=== PATIENT | female | born 1950 | race Caucasian/White ===

== ENCOUNTER 2017-03-17 10:49 | Outpatient (CLI) | payer OTHER ==
--- NOTE | 2017-03-18 08:20 | Mammography Report ---
DIGITAL BILATERAL SCREENING MAMMOGRAM: 03/17/2017 CLINICAL HISTORY: A 66-year-old female in for routine screening mammogram. Patient's mother had liliana ast cancer at age 50. Her aunt had breast cancer at age 82. She has a cousin with breast cancer at age 35. Patient has had prior breast surgery. She had a benign biopsy of the left breast. COMPARISON: 03/21/2016, 05/25/2013 TECHNIQUE: Craniocaudad and oblique lateral views of each breast were obtained with [facility] digital mammography. To compliment the exam, axillary exaggerated craniocaudad views of each priti st were obtained. FINDINGS: Heterogeneously dense breasts are noted bilaterally. The left breast shows some mild skin deformity and less glandular hyperplasia. This was related to patient's known prior biopsy. Biopsy was performed in the upper outer quadrant of the left breast. No significant clusters of calcificat ion are seen. No significant masses are noted. No significant change is seen. IMPRESSION: BREASTS APPEAR RADIOGRAPHICALLY BENIGN. BIRADS CATEGORY 1 - NEGATIVE. RECOMMENDATIONS: Annual bilateral screening mammography. STANDARD QUALIFYING STATEMENTS 1. This examination was reviewed with the aid of Computer-Aided Detection (CAD). 2. A negative or benign imaging report should not delay biopsy if clinically suspicious findings are present. Consider surgical consultation if warranted. More than 5% of cancers are not identified by juan guillen. 3. Dense breasts may obscure an underlying neoplasm. JOB #: [id number] EXT JOB #:[id number]
== END 2017-03-17 10:50 | disposition home or self-care (01) ==
LOC: DI.N 10:49
PROVIDERS: ATTEND Physician Assistant Medical
DX: Z12.31 Encounter for screening mammogram for malignant neoplasm of breast (principal); Z80.3 Family history of malignant neoplasm of breast
CPT/HCPCS: 77067

== ENCOUNTER 2017-03-31 14:57 | Outpatient (CLI) | payer OTHER ==
[2017-03-31 13:31] LABS: BASOPHILS # (AUTO) 0.1 10^3/uL (0.0-0.1); BASOPHILS % (AUTO) 1.3 %; EOSINOPHILS # (AUTO) 0.4 10^3/uL (0.0-0.7); EOSINOPHILS % (AUTO) 4.4 %; HCT - HEMATOCRIT 38.4 % (37.0-47.0); HGB - HEMOGLOBIN 12.8 g/dL (12.0-16.0); LYMPHOCYTES # (AUTO) 3.4 10^3/uL (1.5-3.5); LYMPHOCYTES % (AUTO) 39.9 %; MEAN CORPUSCULAR HEMOGLOBIN 30.9 pg (27.0-31.0); MEAN CORPUSCULAR HGB CONC 33.4 g/dL (32.0-36.0); MEAN CORPUSCULAR VOLUME 92.7 fL (81.0-99.0); MEAN PLATELET VOLUME 9.5 fL (7.9-10.8); MONOCYTES # (AUTO) 0.8 10^3/uL (0.0-1.0); MONOCYTES % (AUTO) 9.4 %; NEUTROPHILS # (AUTO) 3.9 10^3/uL (1.5-6.6); RED BLOOD COUNT 4.15 10^6/uL (4.20-5.40); RED CELL DISTRIBUTION WIDTH 13.6 % (12.0-15.0); UNCORRECTED WHITE BLOOD COUNT 8.6 x10^3/uL; WHITE BLOOD COUNT 8.6 x10^3/uL (4.8-10.8)
[2017-03-31 13:42] LABS: ALBUMIN/GLOBULIN RATIO 1.6 (1.0-2.2); BILIRUBIN,TOTAL 0.4 mg/dL (0.2-1.0); BUN - BLOOD UREA NITROGEN 19 mg/dL (6-20); CALCIUM 8.8 mg/dL (8.5-10.3); CARBON DIOXIDE - CO2 28 mmol/L (21-32); CHLORIDE 107 mmol/L (101-111); CHOL/HDL RATIO 3.2 (<4.4); CHOLESTEROL 140 mg/dL; CREATININE 0.7 mg/dL (0.4-1.0); GFR - MDRD 84 (>89); GLUCOSE 98 mg/dL (70-100); HDL CHOLESTEROL 44 mg/dL; LDL/HDL RATIO 1.9 (<4.4); POTASSIUM 4.1 mmol/L (3.5-5.0); SODIUM 141 mmol/L (135-145); TOTAL PROTEIN 6.5 g/dL (6.7-8.2); TRIGLYCERIDES 65 mg/dL; VLDL CHOLESTEROL 13 mg/dL
== END 2017-03-31 14:58 | disposition home or self-care (01) ==
LOC: LAB.N 14:57
PROVIDERS: ATTEND Physician Assistant Medical
DX: Z00.00 Encounter for general adult medical examination without abnormal findings (principal); M81.0 Age-related osteoporosis without current pathological fracture; Z79.899 Other long term (current) drug therapy
CPT/HCPCS: 36415; 80053; 80061; 82306; 84443; 85025

== ENCOUNTER 2018-05-26 07:30 | Outpatient (CLI) | payer OTHER ==
[2018-05-26 12:39] LABS: BASOPHILS # (AUTO) 0.1 10^3/uL (0.0-0.1); BASOPHILS % (AUTO) 0.7 %; EOSINOPHILS # (AUTO) 0.3 10^3/uL (0.0-0.7); EOSINOPHILS % (AUTO) 2.4 %; HGB - HEMOGLOBIN 13.7 g/dL (12.0-16.0); LYMPHOCYTES % (AUTO) 25.5 %; MEAN CORPUSCULAR HEMOGLOBIN 31.1 pg (27.0-31.0); MEAN CORPUSCULAR HGB CONC 33.5 g/dL (32.0-36.0); MEAN CORPUSCULAR VOLUME 92.8 fL (81.0-99.0); MEAN PLATELET VOLUME 9.1 fL (7.9-10.8); MONOCYTES # (AUTO) 0.7 10^3/uL (0.0-1.0); NEUTROPHILS # (AUTO) 7.8 10^3/uL (1.5-6.6); NEUTROPHILS % (AUTO) 65.4 %; PLT - PLATELET COUNT 255 10^3/uL (130-450); RED BLOOD COUNT 4.41 10^6/uL (4.20-5.40); RED CELL DISTRIBUTION WIDTH 14.6 % (12.0-15.0); WHITE BLOOD COUNT 11.9 x10^3/uL (4.8-10.8)
[2018-05-26 12:49] LABS: ALBUMIN 4.3 g/dL (3.2-5.5); ALBUMIN/GLOBULIN RATIO 1.4 (1.0-2.2); ALKALINE PHOSPHATASE 51 IU/L (42-121); ALT ALANINE AMINOTRANSFERASE 19 IU/L (10-60); AST ASPARTATE AMINOTRANSFERASE 22 IU/L (10-42); BUN - BLOOD UREA NITROGEN 16 mg/dL (6-20); CALCIUM 9.2 mg/dL (8.5-10.3); CARBON DIOXIDE - CO2 27 mmol/L (21-32); CHLORIDE 108 mmol/L (101-111); CHOL/HDL RATIO 3.5 (<4.4); CHOLESTEROL 186 mg/dL; CREATININE 0.7 mg/dL (0.4-1.0); GFR - MDRD 84 (>89); GLUCOSE 93 mg/dL (70-100); HDL CHOLESTEROL 53 mg/dL; LDL CHOLESTEROL,CALCULATED 118 mg/dL; LDL/HDL RATIO 2.2 (<4.4); SODIUM 141 mmol/L (135-145); TOTAL PROTEIN 7.3 g/dL (6.7-8.2); VLDL CHOLESTEROL 15 mg/dL
[2018-05-27 13:33] LABS: HEPATITIS C ANTIBODY NON-REACTIVE (NON-REACTIVE)
== END 2018-05-26 07:31 | disposition home or self-care (01) ==
LOC: LAB.N 07:30
PROVIDERS: ATTEND Physician Assistant Medical
DX: M81.0 Age-related osteoporosis without current pathological fracture (principal); Z79.899 Other long term (current) drug therapy; Z11.59 Encounter for screening for other viral diseases
CPT/HCPCS: 36415; 80053; 80061; 82306; 83721; 84443; 85025; 86803

== ENCOUNTER 2018-06-26 07:48 | Outpatient (CLI) | payer OTHER ==
[2018-06-26 12:24] LABS: BASOPHILS # (AUTO) 0.1 10^3/uL (0.0-0.1); EOSINOPHILS # (AUTO) 0.4 10^3/uL (0.0-0.7); EOSINOPHILS % (AUTO) 3.3 %; HGB - HEMOGLOBIN 13.5 g/dL (12.0-16.0); LYMPHOCYTES # (AUTO) 2.9 10^3/uL (1.5-3.5); LYMPHOCYTES % (AUTO) 27.7 %; MEAN CORPUSCULAR HEMOGLOBIN 31.6 pg (27.0-31.0); MEAN CORPUSCULAR VOLUME 92.9 fL (81.0-99.0); MEAN PLATELET VOLUME 9.2 fL (7.9-10.8); MONOCYTES # (AUTO) 0.8 10^3/uL (0.0-1.0); MONOCYTES % (AUTO) 7.4 %; NEUTROPHILS # (AUTO) 6.4 10^3/uL (1.5-6.6); NEUTROPHILS % (AUTO) 60.6 %; PLT - PLATELET COUNT 260 10^3/uL (130-450); RED BLOOD COUNT 4.27 10^6/uL (4.20-5.40); RED CELL DISTRIBUTION WIDTH 14.1 % (12.0-15.0); WHITE BLOOD COUNT 10.6 x10^3/uL (4.8-10.8)
== END 2018-06-26 07:49 | disposition home or self-care (01) ==
LOC: LAB.N 07:48
PROVIDERS: ATTEND Physician Assistant Medical
DX: D72.829 Elevated white blood cell count, unspecified (principal); R35.8 Other polyuria; R35.1 Nocturia
CPT/HCPCS: 36415; 85025

== ENCOUNTER 2018-07-03 13:53 | Outpatient (CLI) | payer OTHER ==
--- NOTE | 2018-07-07 08:58 | DEXA Report ---
Reason: OSTEOPOROS Procedure Date: 07/03/2018 Accession Number: [id number] / [id number] Procedure: DEX - Dexa Spine and/or Hip CPT Code: FULL RESULT: EXAM: Dexa Spine and/or Hip DATE: 07/03/2018 3:18 PM CLINICAL HISTORY: OSTEOPOROS TECHNIQUE: Dual energy x-ray absorptiometry (DXA) was performed on a [employer] System. Regions measured are the AP Spine, femoral neck, and if needed forearm. COMPARISON: 03/21/2016. In accordance with the International Society for Clinical Densitometry (ISCD) guidelines, data from previous exams may be reanalyzed using current recommendations and techniques. This is done to allow a more accurate basis for comparison with the current study. FINDINGS: The data for the lumbar spine is as follows: BMD (g/cm/cm) T-SCORE Z-SCORE REGION L1 0.724 -3.4 -1.1 L2 0.802 -3.3 -1.0 L3 0.805 -3.3 -1.0 L4 0.769 -3.6 -1.3 TOTAL 0.775 -3.4 -1.1 NOTE: All evaluable vertebrae are used for classification The data for the hip is as follows: BMD (g/cm/cm) T-SCORE Z-SCORE REGION Neck 0.660 -2.7 -0.7 TOTAL 0.613 -3.1 -1.4 NOTE: The femoral neck or total proximal femur, whichever is lowest, is used for classification. DXA RESULTS SUMMARY: Spine SCAN DATE AGE BMD CHANGE VS CHANGE VS PREVIOUS PREVIOUS % 07[birth year]03/2018 [age] 0.790 -0.010 -1.3 03/21/2016 [age] 0[age]800 * Denotes significant change at the 95% confidence level. Denotes dissimilar scan types or analysis methods. DXA RESULTS SUMMARY: Hip SCAN DATE AGE BMD CHANGE VS CHANGE VS PREVIOUS PREVIOUS % [birth year]03[birth year]2018 66.8 0.613 -0.032 -5.0 03/21/2016 65.5 0.645 * Denotes significant change at the 95% confidence level. Denotes dissimilar scan types or analysis methods. IMPRESSION: THE WHO CLASSIFICATION BASED ON THE INTERNATIONAL REFERENCE STANDARD IS OSTEOPOROSIS. THE FRACTURE RISK IS HIGH. RECOMMENDATION: Patients with diagnosis of osteoporosis or osteopenia should have regular bone mineral density assessment. For those eligible for Medicare, routine testing is allowed once every 2 years. Testing frequency can be increased for patients who have rapidly progressing disease or for those who are receiving medical therapy to restore bone mass. COMMENT: World Health Organization (WHO) definitions for osteoporosis and osteopenia: NORMAL BMD: T-score at -1.0 or higher, fracture risk is low OSTEOPENIA BMD: T-score between -1.0 and -2.5, fracture risk is increased. OSTEOPOROSIS BMD: T-score at -2.5 or lower, fracture risk is high. National Osteoporosis Foundation recommends: 1. Obtain adequate dietary calcium (at least 1200 mg per day) and vitamin D (400-800 international units per day). 2. Participate, as appropriate, in regular weightbearing and muscle-strengthening exercise. 3. Avoid tobacco use and reduce alcohol and caffeine intake. 4. For more detailed information see the website at www.NOF.org.
== END 2018-07-03 13:54 | disposition home or self-care (01) ==
LOC: DI 13:53
PROVIDERS: ATTEND Physician Assistant Medical
DX: R01.1 Cardiac murmur, unspecified (principal); I35.1 Nonrheumatic aortic (valve) insufficiency; M81.0 Age-related osteoporosis without current pathological fracture; Z78.0 Asymptomatic menopausal state
CPT/HCPCS: 77080; 93306

== ENCOUNTER 2018-07-03 13:54 | Outpatient (CLI) | payer OTHER ==
--- NOTE | 2018-07-06 08:41 | Mammography Report ---
Reason: SCREENING MAMMO Procedure Date: 07/03/2018 Accession Number: [id number] / [id number] Procedure: ANABELLA - Screening Mammo w/Nawaf CPT Code: FULL RESULT: EXAM: Screening Mammo w/Nawaf DATE: 07/03/2018 3:28 PM CLINICAL HISTORY: 67-year-old female with history of biopsy of the left breast with benign results. TECHNIQUE: Bilateral CC and MLO views were obtained. COMPARISON: 03/17/2017, 03/21/2016, 05/25/2013, 05/13/2012. FINDINGS: The breasts demonstrate heterogeneously dense fibroglandular parenchyma bilaterally. A typically benign coarse right breast calcification is identified. Postprocedural changes are again seen in the left breast and stable. No suspicious masses, clustered microcalcifications, or regions of architectural distortion are identified. IMPRESSION: Benign findings RECOMMENDATION: Routine annual screening unless otherwise clinically indicated. BIRADS CATEGORY 2: Benign findings STANDARD QUALIFYING STATEMENTS: 1. This examination was not reviewed with the aid of Computer-Aided Detection (CAD). 2. A negative or benign imaging report should not delay biopsy if clinically suspicious findings are present. Consider surgical consultation if warrented. More than 5% of cancers are not identified by imaging. 3. Dense breasts may obscure an underlying neoplasm. 4. This examination was reviewed with the aid of 3D breast imaging (tomosynthesis).
== END 2018-07-03 13:55 | disposition home or self-care (01) ==
LOC: DI 13:54
PROVIDERS: ATTEND Physician Assistant Medical
DX: Z12.31 Encounter for screening mammogram for malignant neoplasm of breast (principal); Z80.3 Family history of malignant neoplasm of breast; Z78.0 Asymptomatic menopausal state; M81.0 Age-related osteoporosis without current pathological fracture
CPT/HCPCS: 77063; 77067

== ENCOUNTER 2018-10-19 09:58 | Day surgery (SDC) | payer OTHER ==
[2018-10-19] MEDS ORDERED: LACTATED RINGERS 1,000 ML IV ONE (10:17)
[2018-10-19] MEDS ORDERED: MIDAZOLAM 2 MG/2 ML VIAL IVP ONE (11:01)
[2018-10-19] MEDS ORDERED: fentaNYL 250 MCG/5 ML VIAL IVP ONE (11:01)
[2018-10-19 12:08] VITALS: BP 114/60
== END 2018-10-19 09:59 | disposition home or self-care (01) ==
LOC: SDS 09:58
PROVIDERS: ATTEND Surgery
PROC: 0DBN8ZZ Excision of Sigmoid Colon, Via Natural or Artificial Opening Endoscopic (ICD-10-PCS; principal; 2018-10-19 12:15)
DX: Z12.11 Encounter for screening for malignant neoplasm of colon (principal); K63.5 Polyp of colon; K64.8 Other hemorrhoids
CPT/HCPCS: 45380; J7120

== ENCOUNTER 2019-07-20 07:15 | Outpatient (CLI) | payer MEDICARE ==
[2019-07-20 12:13] LABS: ALBUMIN 4.3 g/dL (3.2-5.5); ALBUMIN/GLOBULIN RATIO 1.6 (1.0-2.2); ALKALINE PHOSPHATASE 44 IU/L (42-121); ALT ALANINE AMINOTRANSFERASE 20 IU/L (10-60); AST ASPARTATE AMINOTRANSFERASE 19 IU/L (10-42); BILIRUBIN,TOTAL 0.6 mg/dL (0.2-1.0); BUN - BLOOD UREA NITROGEN 17 mg/dL (6-20); CALCIUM 9.4 mg/dL (8.5-10.3); CARBON DIOXIDE - CO2 29 mmol/L (21-32); CHLORIDE 103 mmol/L (101-111); CHOL/HDL RATIO 3.8 (<4.4); CHOLESTEROL 188 mg/dL; CREATININE 0.8 mg/dL (0.4-1.0); GFR - MDRD 72 (>89); GLUCOSE 87 mg/dL (70-100); HDL CHOLESTEROL 49 mg/dL; LDL CHOLESTEROL,CALCULATED 110 mg/dL; LDL/HDL RATIO 2.2 (<4.4); SODIUM 140 mmol/L (135-145); VLDL CHOLESTEROL 29 mg/dL
[2019-07-20 12:24] LABS: BASOPHILS # (AUTO) 0.1 10^3/uL (0.0-0.1); BASOPHILS % (AUTO) 0.9 %; EOSINOPHILS # (AUTO) 0.4 10^3/uL (0.0-0.7); EOSINOPHILS % (AUTO) 4.1 %; HGB - HEMOGLOBIN 13.2 g/dL (12.0-16.0); LYMPHOCYTES # (AUTO) 3.5 10^3/uL (1.5-3.5); LYMPHOCYTES % (AUTO) 38.3 %; MEAN CORPUSCULAR HEMOGLOBIN 30.6 pg (27.0-31.0); MEAN CORPUSCULAR HGB CONC 31.8 g/dL (32.0-36.0); MEAN CORPUSCULAR VOLUME 96.1 fL (81.0-99.0); MEAN PLATELET VOLUME 10.8 fL (7.9-10.8); MONOCYTES # (AUTO) 0.6 10^3/uL (0.0-1.0); MONOCYTES % (AUTO) 7.1 %; NEUTROPHILS # (AUTO) 4.5 10^3/uL (1.5-6.6); NEUTROPHILS % (AUTO) 49.4 %; PLT - PLATELET COUNT 243 10^3/uL (130-450); RED BLOOD COUNT 4.32 10^6/uL (4.20-5.40); RED CELL DISTRIBUTION WIDTH 13.4 % (12.0-15.0); WHITE BLOOD COUNT 9.1 x10^3/uL (4.8-10.8)
== END 2019-07-20 23:59 ==
LOC: LAB.N 07:15
PROVIDERS: ATTEND Nurse Practitioner
DX: Z00.00 Encounter for general adult medical examination without abnormal findings (principal); M81.0 Age-related osteoporosis without current pathological fracture; R01.1 Cardiac murmur, unspecified; Z79.899 Other long term (current) drug therapy
CPT/HCPCS: 36415; 80053; 80061; 82306; 83721; 84443; 85025

== ENCOUNTER 2019-07-22 07:44 | Outpatient (CLI) | payer MEDICARE ==
--- NOTE | 2019-07-22 10:46 | Mammography Report ---
Reason: ROUTINE MAMMO Procedure Date: 07/22/2019 Accession Number: [id number] / [id number] Procedure: ANABELLA - Screening Mammo w/Nawaf CPT Code: FULL RESULT: EXAM: Screening Mammo w/Nawaf DATE: 07/22/2019 8:14 AM CLINICAL HISTORY: Routine screening. Mother with breast cancer. Prior left breast biopsy. TECHNIQUE: (B) - Bilateral CC and MLO views were obtained. COMPARISON: 07/03/2018, 03/17/2017, 03/21/2016, 05/25/2013, 05/13/2012, 03/06/2011 and 10/27/2009 PARENCHYMAL PATTERN: (A) - The breasts demonstrate scattered fibroglandular densities bilaterally. FINDINGS: No significant interval change. There are no suspicious masses, calcifications, or areas of distortion. IMPRESSION: Negative examination. BI-RADS category 1. RECOMMENDATION: (ANNUAL) - Recommend routine annual screening mammography. BI-RADS CATEGORY: (1) - Negative. STANDARD QUALIFYING STATEMENTS: 1. This examination was not reviewed with the aid of Computer-Aided Detection (CAD). 2. A negative or benign imaging report should not preclude biopsy if clinically suspicious findings are present. 3. Dense breasts may obscure an underlying neoplasm. 4. This examination was reviewed with the aid of 3D breast imaging (tomosynthesis).
== END 2019-07-22 07:45 | disposition home or self-care (01) ==
LOC: DI 07:44
PROVIDERS: ATTEND Nurse Practitioner
DX: Z12.31 Encounter for screening mammogram for malignant neoplasm of breast (principal); Z80.3 Family history of malignant neoplasm of breast
CPT/HCPCS: 77063; 77067

== ENCOUNTER 2020-10-31 07:19 | Outpatient (CLI) | payer MEDICARE ==
[2020-10-31 12:13] LABS: BASOPHILS # (AUTO) 0.1 10^3/uL (0.0-0.1); EOSINOPHILS # (AUTO) 0.3 10^3/uL (0.0-0.7); HGB - HEMOGLOBIN 13.8 g/dL (12.0-16.0); MEAN CORPUSCULAR HEMOGLOBIN 31.2 pg (27.0-31.0); MEAN CORPUSCULAR VOLUME 97.3 fL (81.0-99.0); MONOCYTES # (AUTO) 0.6 10^3/uL (0.0-1.0); MONOCYTES % (AUTO) 7.8 %; NEUTROPHILS % (AUTO) 49.9 %; PLT - PLATELET COUNT 265 10^3/uL (130-450); RED BLOOD COUNT 4.43 10^6/uL (4.20-5.40); RED CELL DISTRIBUTION WIDTH 13.2 % (12.0-15.0)
[2020-10-31 12:34] LABS: ALBUMIN 4.3 g/dL (3.2-5.5); ALBUMIN/GLOBULIN RATIO 1.5 (1.0-2.2); ALKALINE PHOSPHATASE 55 IU/L (42-121); ALT ALANINE AMINOTRANSFERASE 20 IU/L (10-60); AST ASPARTATE AMINOTRANSFERASE 20 IU/L (10-42); BILIRUBIN,TOTAL 0.6 mg/dL (0.2-1.0); BUN - BLOOD UREA NITROGEN 17 mg/dL (6-20); CALCIUM 9.6 mg/dL (8.5-10.3); CARBON DIOXIDE - CO2 29 mmol/L (21-32); CHLORIDE 104 mmol/L (101-111); CHOL/HDL RATIO 3.8 (<4.4); CHOLESTEROL 196 mg/dL; CREATININE 0.8 mg/dL (0.4-1.0); GLUCOSE 105 mg/dL (70-100); HDL CHOLESTEROL 51 mg/dL; LDL CHOLESTEROL,CALCULATED 128 mg/dL; LDL/HDL RATIO 2.5 (<4.4); TOTAL PROTEIN 7.2 g/dL (6.7-8.2); VLDL CHOLESTEROL 17 mg/dL
== END 2020-10-31 07:20 | disposition home or self-care (01) ==
LOC: LAB.N 07:19
PROVIDERS: ATTEND Nurse Practitioner
DX: Z00.00 Encounter for general adult medical examination without abnormal findings (principal); Z79.899 Other long term (current) drug therapy
CPT/HCPCS: 36415; 80053; 80061; 83721; 84443; 85025

== ENCOUNTER 2020-11-22 08:06 | Outpatient (CLI) | payer MEDICARE ==
--- NOTE | 2020-11-22 16:01 | DEXA Report ---
PROCEDURE: Dexa Spine and/or Hip INDICATIONS: POST MENOPAUSAL TECHNIQUE: Dual energy x-ray absorptiometry (DXA) was performed on a [employer] System. Regions measur ed are the AP Spine, femoral neck, and if needed forearm. COMPARISON: 07/03/2018 and 03/21/2016. FINDINGS: Lumbar Spine: Bone Mineral Density 0.760 g/cm/cm,T score -3.5, osteoporosis Left Hip: Bone Mineral Density 0.641 g/cm/cm,T score -2.9, osteoporosis Left Femoral Neck: Bone Mineral Density 0.639 g/cm/cm, T score -2.9, osteoporosis (T score greater or equal to -1.0: NORMAL) (T score from -1.1 to -2.4: OSTEOPENIA) (T score less than or equal to -2.5 to: OSTEOPOROSIS) Impression: Osteoporosis. Bone marrow density is increased approximately 4.6% compared to 07/03/2018. Patients with diagnosis of osteoporosis or osteopenia should have regular bone mineral density assess ment. For those eligible for Medicare, routine testing is allowed once every 2 years. Testing frequ ency can be increased for patients who have rapidly progressing disease or for those who are receivin g medical therapy to restore bone mass. Reviewed by: Karyna Hendrickson MD, PhD on 11/22/2020 4:00 PM PST Approved by: Karyna Hendrickson MD, PhD on 11/22/2020 4:00 PM PST Station ID: [id number]
== END 2020-11-22 08:07 | disposition home or self-care (01) ==
LOC: DI 08:06
PROVIDERS: ATTEND Nurse Practitioner
DX: M81.0 Age-related osteoporosis without current pathological fracture (principal); Z78.0 Asymptomatic menopausal state

== ENCOUNTER 2020-11-29 09:15 | Outpatient (CLI) | payer MEDICARE ==
--- NOTE | 2020-11-30 07:24 | Mammography Report ---
BILATERAL DIGITAL SCREENING MAMMOGRAM 3D/2D: 11/29/2020 CLINICAL: Family history of breast cancer. Routine screening. Comparison is made to exams dated: 07/22/2019 mammogram, 07/03/2018 mammogram, 03/17/2017 mammogram, mammogram, 05/25/2013 mammogram, and 05/13/2012 mammogram - [facility]. The re are scattered fibroglandular elements in both breasts. There is an oval asymmetry with an obscured and circumscribed margin in the left breast at 9 o'clock anterior depth. This is more prominent and increased in size. No other significant masses, calcifications, or other findings are seen in either breast. IMPRESSION: INCOMPLETE: NEEDS ADDITIONAL IMAGING EVALUATION The oval asymmetry in the left breast most likely is a lymph node but remains indeterminate. Additi onal views with possible ultrasound are recommended. This exam was interpreted at Station ID: [id number]. NOTE: For mammograms, a report in lay terms will be sent to the patient. Approximately 15% of breast malignancies will not be visualized mammographically. In the management of a palpable breast mass, a negative mammogram must not discourage biopsy of a clinically suspicious lesion. Electronically Signed By: Velvet kennedy/:11/29/2020 11:46:53 ACR BI-RADS Category 0: Incomplete 3340F PARENCHYMAL PATTERN: (A) - The breast(s) demonstrate(s) scattered fibroglandular densities. BI-RADS CATEGORY: (0) - 0 Mammo and [place] [id number] Immediate follow-up LATERALITY: (B)
== END 2020-11-29 09:16 | disposition home or self-care (01) ==
LOC: DI.N 09:15
PROVIDERS: ATTEND Nurse Practitioner
DX: Z12.31 Encounter for screening mammogram for malignant neoplasm of breast (principal); Z80.3 Family history of malignant neoplasm of breast; N64.89 Other specified disorders of breast

== ENCOUNTER 2020-12-13 09:10 | Outpatient (CLI) | payer MEDICARE ==
--- NOTE | 2020-12-14 14:14 | Mammography Report ---
UNILATERAL LEFT DIGITAL DIAGNOSTIC MAMMOGRAM 3D/2D: 12/13/2020 CLINICAL: Patient returns today to evaluate a focal asymmetry in the left breast. Comparison is made to exams dated: 11/29/2020 mammogram, 07/22/2019 mammogram, 07/03/2018 mammogram, an d 03/17/2017 mammogram - [facility]. There are scattered fibroglandular elements in left breast. The previously described oval asymmetry with an obscured and circumscribed margin in the left breast at 8 o'clock anterior depth is seen in additional views. This is not significantly changed from rece nt screening mammogram but new compared to prior studies. No other significant masses or calcifications are seen in the breast. IMPRESSION: INCOMPLETE: NEEDS ADDITIONAL IMAGING EVALUATION The oval asymmetry in the left breast most likely is a cyst or a lymph node but remains indeterminate . An ultrasound is recommended for further evaluation and is scheduled to immediately follow this exami nation. This exam was interpreted at Station ID: [id number]. NOTE: For mammograms, a report in lay terms will be sent to the patient. Approximately 15% of breast malignancies will not be visualized mammographically. In the management of a palpable breast mass, a negative mammogram must not discourage biopsy of a clinically suspicious lesion. Electronically Signed By: Panchito Terrell M.D. aty/:12/13/2020 10:02:58 ACR BI-RADS Category 0: Incomplete 3340F PARENCHYMAL PATTERN: (A) - The breast(s) demonstrate(s) scattered fibroglandular densities. BI-RADS CATEGORY: (0) - 0 Ultrasound [id number] Immediate follow-up LATERALITY: (L)
--- NOTE | 2020-12-14 14:15 | Ultrasound Report ---
LIMITED ULTRASOUND OF LEFT BREAST: 12/13/2020 CLINICAL: Patient returns for additional imaging over a suspected mass in the left breast. Comparison is made to exams dated: 12/13/2020 mammogram, 11/29/2020 mammogram, 07/22/2019 mammogram, mammogram, 03/17/2017 mammogram, and 03/21/2016 mammogram - [facility]. Color flow and real-time ultrasound of the left breast 8 o'clock region were performed. Pedersen scale images of the real-time examination were reviewed. There is a benign 0.5 cm x 0.3 cm x 0.5 cm oval cyst in the left breast at 8 o'clock anterior depth 2 cm from the nipple. This oval cyst is anechoic with a well-defined boundary. This correlates with mammography findings. Color flow imaging demonstrates that there is no vascularity present. IMPRESSION: BENIGN There is no sonographic evidence of malignancy. The 0.5 cm x 0.3 cm x 0.5 cm oval simple cyst in the left breast is benign. A 1 year screening mammogram is recommended. Findings and recommendations were conveyed to the patient during today's evaluation. This exam was interpreted at Station ID: [id number]. Electronically Signed By: Panchito Terrell M.D. aty/:12/13/2020 10:31:31 Ultrasound BI-RADS: 2 Benign BI-RADS CATEGORY: (2) - 2 RECOMMENDATION: (ANNUAL) - Recommend routine annual screening mammography. [id number] 1 year screening LATERALITY: (B)
== END 2020-12-13 09:11 | disposition home or self-care (01) ==
LOC: DI 09:10
PROVIDERS: ATTEND Nurse Practitioner
DX: N60.02 Solitary cyst of left breast (principal)

== ENCOUNTER 2021-07-20 07:08 | Outpatient (CLI) | payer MEDICARE ==
--- NOTE | 2021-07-20 08:25 | XRAY Report ---
PROCEDURE: Knee 4 View LT INDICATIONS: LEFT KNEE PAIN TECHNIQUE: 5 views of the left knee(s) were acquired. COMPARISON: None. FINDINGS: BONES/JOINT: No acute, displaced fracture or dislocation. Small suprapatellar joint effusion. SOFT TISSUES: No significant abnormality. IMPRESSION: 1.No acute osseous abnormality. Reviewed by: Brian Jones MD on 07/20/2021 8:24 AM PDT Approved by: Brian Jones MD on 07/20/2021 8:24 AM PDT Station ID: [id number]
== END 2021-07-20 07:09 | disposition home or self-care (01) ==
LOC: DI.N 07:08
PROVIDERS: ATTEND Family Medicine
DX: M25.562 Pain in left knee (principal)

== ENCOUNTER 2022-04-27 12:50 | Outpatient (CLI) | payer MEDICARE | END 2022-04-27 12:51 | disposition EMS.NT | LOC: EMS 12:50 | DX: R55 Syncope and collapse (principal) ==

== ENCOUNTER 2023-07-11 16:06 | Emergency (ER) | payer MEDICARE ==
[2023-07-11 16:26] VITALS: O2SAT 93
--- NOTE | 2023-07-11 16:39 | XRAY Report ---
PROCEDURE: Chest 1 View X-Ray INDICATIONS: dyspnea cough TECHNIQUE: One view of the chest was acquired. COMPARISON: None. FINDINGS: Surgical changes and devices: None. Lungs and pleura: No pleural effusions or pneumothorax. Hyperexpansion of the lungs, likely represen ting COPD. Lungs are clear. Mediastinum: Mediastinal contours appear normal. Heart size is normal. Bones and chest wall: No suspicious bony lesions. Overlying soft tissues appear unremarkable. IMPRESSION: No acute cardiopulmonary process. Hyperexpansion of the lungs, likely representing COPD. Reviewed by: Julien Reyes MD on 07/11/2023 4:38 PM PDT Approved by: Julien Reyes MD on 07/11/2023 4:38 PM PDT Station ID: [id number]
[2023-07-11 16:43] LABS: BASOPHILS % (AUTO) 0.5 %; EOSINOPHILS % (AUTO) 0.2 %; HCT - HEMATOCRIT 42.7 % (37.0-47.0); HGB - HEMOGLOBIN 13.6 g/dL (12.0-16.0); LYMPHOCYTES % (AUTO) 11.1 %; MEAN CORPUSCULAR HEMOGLOBIN 29.6 pg (27.0-31.0); MEAN CORPUSCULAR HGB CONC 31.9 g/dL (32.0-36.0); MEAN PLATELET VOLUME 9.4 fL (7.9-10.8); MONOCYTES % (AUTO) 7.5 %; NEUTROPHILS % (AUTO) 80.2 %; PLT - PLATELET COUNT 382 10^3/uL (130-450); RED BLOOD COUNT 4.59 10^6/uL (4.20-5.40); RED CELL DISTRIBUTION WIDTH 13.3 % (12.0-15.0); WHITE BLOOD COUNT 21.8 x10^3/uL (4.8-10.8)
[2023-07-11 16:52] LABS: ABNORMAL LYMPHS % (MANUAL) 0 %
[2023-07-11 17:07] LABS: ALBUMIN 4.6 g/dL (3.2-5.5); ALBUMIN/GLOBULIN RATIO 1.4 (1.0-2.2); ALKALINE PHOSPHATASE 116 IU/L (42-121); ALT ALANINE AMINOTRANSFERASE 26 IU/L (10-60); AST ASPARTATE AMINOTRANSFERASE 20 IU/L (10-42); BILIRUBIN,TOTAL 0.3 mg/dL (0.2-1.0); BUN - BLOOD UREA NITROGEN 17 mg/dL (6-20); CALCIUM 9.9 mg/dL (8.5-10.3); CARBON DIOXIDE - CO2 32 mmol/L (21-32); CHLORIDE 102 mmol/L (101-111); CREATININE 0.7 mg/dL (0.6-1.3); GFR - MDRD 82 (>89); GLUCOSE 118 mg/dL (74-104); POTASSIUM 3.8 mmol/L (3.5-4.5); SODIUM 141 mmol/L (135-145); TOTAL PROTEIN 7.8 g/dL (6.4-8.9)
[2023-07-11 17:09] LABS: LIPASE < 10 U/L (11-82)
--- NOTE | 2023-07-11 17:12 | ED Physician Documentation ---
PD HPI URI - Stated complaint Stated Complaint: SOA/HIGH HEART RATE - Chief complaint Chief Complaint: Resp - History obtained from History obtained from: Patient - Additional information Additional information: 72-year-old woman sent from the walk-in clinic. She is been sick for a week with cough productive of clear from and some shortness of breath. No fevers. No history of lung or heart or lung problems. She was a very remote smoker. PD PAST MEDICAL HISTORY - Past Medical History Past Medical History: Yes Cardiovascular: Murmur Respiratory: None Endocrine/Autoimmune: None GI: None : None Psych: None Musculoskeletal: None Derm: None - Past Surgical History Past Surgical History: Yes General: Colonoscopy HEENT: Tonsil/Adenoidectomy - Present Medications Home Medications: Ambulatory Orders Medication Instructions Recorded Confirmed Albuterol Sulf [Ventolin Hfa 1 - 2 puffs INH Q4HR PRN #1 each 07/11/23 Inhaler] Doxycycline [Vibramycin] 100 mg PO BID #14 tablet 07/11/23 predniSONE [Deltasone] 60 mg PO DAILY 5 Days #15 tablet 07/11/23 - Allergies Allergies/Adverse Reactions: Allergies Allergy/AdvReac Type Severity Reaction Status Date / Time No Known Drug Allergies Allergy Verified 10/19/18 10:30 - Social History Does the pt smoke?: No Smoking Status: Never smoker PD ED PE NORMAL - Vitals Vital signs reviewed: Yes - General General: Alert and oriented X 3, No acute distress - HEENT HEENT: PERRL, EOMI - Neck Neck: Supple, no meningeal sign, No bony TTP - Cardiac Cardiac: Other (Mild resting tachycardia, regular without murmur) - Respiratory Respiratory: No respiratory distress, Other (Mildly diminished throughout without focal findings) - Abdomen Abdomen: Non tender - Extremities Extremities: No edema, No calf tenderness / cord - Neuro Neuro: Alert and oriented X 3, Normal speech Results - Vitals Vitals: Vital Signs - 24 hr 07/11/23 07/11/23 16:14 17:36 Temperature 36.9 C Heart Rate 94 100 Respiratory 20 20 Rate Blood Pressure 177/79 H 149/78 H O2 Saturation 93 93 Oxygen O2 Source Room air - EKG (time done) 1654 EKG releavant findings:: EKG personally interpreted by author of this note. Relevant findings are: Rate: Rate (enter#) (96) Rhythm: NSR, ARCHANA Hamel: Normal Intervals: Normal NV QRS: Normal Ischemia: Normal ST segments - Labs Labs: Laboratory Tests 07/11/23 07/11/23 07/11/23 16:35 16:35 16:35 WBC 21.8 H RBC 4.59 Hgb 13.6 Hct 42.7 MCV 93.0 MCH 29.6 MCHC 31.9 L RDW 13.3 Plt Count 382 MPV 9.4 Neut # (Auto) Not Reportable Lymph # (Auto) Not Reportable [place] # (Auto) Not Reportable Eos # (Auto) Not Reportable Baso # (Auto) Not Reportable Absolute Nucleated RBC Not Reportable Total Counted 100 Band Neuts % (Manual) 2 Reactive Lymphs % (Man) 3 Abnorm Lymph % (Manual) 0 Nucleated RBC % Not Reportable Neutrophils # (Manual) 18.1 H Lymphocytes # (Manual) 2.6 Monocytes # (Manual) 1.1 H Eosinophils # (Manual) 0.0 Basophils # (Manual) 0.0 Differential Comment MANUAL DIFFERENTIAL Platelet Estimate NORMAL (130-450,000) Platelet Morphology NORMAL APPEARANCE RBC Morph Micro Appear NORMAL APPEARANCE Sodium 141 Potassium 3.8 Chloride 102 Carbon Dioxide 32 Anion Gap 7.0 BUN 17 Creatinine 0.7 Estimated GFR (MDRD) 82 L Glucose 118 H Calcium 9.9 Total Bilirubin 0.3 AST 20 ALT 26 Alkaline Phosphatase 116 B-Natriuretic Peptide 85 Total Protein 7.8 Albumin 4.6 Globulin 3.2 Albumin/Globulin Ratio 1.4 Lipase < 10 L - Rads (name of study) Single view chest x-ray demonstrates hyperexpansion consistent with COPD but no pneumonia. Relevant Findings:: Final report received, EMP independent interpretation of test PD Medical Decision Making - ED course ED course: 72-year-old woman with a respiratory illness marked by productive cough and shortness of breath. Findings of COPD on x-ray. CBC notable for leukocytosis but does appear well. No evidence of CHF and CMP is normal. Discharged on antibiotics and steroids. She will follow-up with her physician to discuss the finding of COPD on x-ray as she was not previously aware of this. Departure - Departure Disposition: 01 Home, Self Care Clinical Impression: Bronchitis Condition: Good Record reviewed to determine appropriate education?: Yes Instructions: ED COPD Flare Prescriptions: Albuterol Sulf [Ventolin Hfa Inhaler] 1 - 2 puffs INH Q4HR PRN #1 each PRN Reason: Shortness Of Air/Wheezing predniSONE [Deltasone] 60 mg PO DAILY 5 Days #15 tablet Doxycycline [Vibramycin] 100 mg PO BID #14 tablet Comments: You were seen today for chest infection, not a pneumonia per se but the radiologist felt he probably had underlying COPD and now have a flare of that. There is no evidence of active heart disease or congestive heart failure. The only abnormal lab to speak of was your white blood cell count was elevated, and that is consistent with infection or inflammation. I am prescribing steroids, antibiotics and an inhaler which should help. Follow-up with your primary care physician and make sure to mention the finding of COPD on your x-ray. Return for new or worsening symptoms. You have a Covid test pending. We will call with a positive result, the fastest way to get a negative result for confirmation though is to go to the hospital website at [email or web address], click on the my [employer] tab and sign up for the patient portal. Forms: PCP List Discharge Date/Time: 07/11/23 17:37
[2023-07-11 17:15] LABS: BAND NEUTROPHILS % (MANUAL) 2 %; DIFFERENTIAL COMMENT MANUAL DIFFERENTIAL; LYMPHOCYTES # (MANUAL) 2.6 10^3/uL (1.5-3.5); LYMPHOCYTES % (MANUAL) 9 %; MONOCYTES # (MANUAL) 1.1 10^3/uL (0.0-1.0); NEUTROPHILS # (MANUAL) 18.1 10^3/uL (1.5-6.6); PLATELET ESTIMATE, MANUAL NORMAL (130-450,000) (NORMAL); PLATELET MORPHOLOGY NORMAL APPEARANCE (NORMAL); RBC MORPHOLOGY (MULTIPLE) NORMAL APPEARANCE (NORMAL); REACTIVE LYMPHS % (MANUAL) 3 %
[2023-07-11] MEDS ORDERED: predniSONE 20 MG TABLET PO STA (17:25)
[2023-07-11] MEDS ORDERED: DOXYCYCLINE 100 MG TABLET PO STA (17:25)
[2023-07-11 17:39] VITALS: BP 149/78
[2023-07-11 18:07] LABS: CORONAVIRUS 229E-RESP PCR NOT DETECTED; CORONAVIRUS HKU1-RESP PCR NOT DETECTED; CORONAVIRUS NL63-RESP PCR NOT DETECTED; CORONAVIRUS OC43-RESP PCR NOT DETECTED; HUMAN METAPNEUMOVIRUS NOT DETECTED; INFLUENZA A- RESP PCR PANEL NOT DETECTED; RHINOVIRUS/ENTEROVIRUS NOT DETECTED; SARS-CoV-2 -RESP PCR PANEL NOT DETECTED
[2023-07-11 18:08] LABS: B. PARAPERTUSSIS- RESP PCR PAN NOT DETECTED; B. PERTUSSIS- RESP PCR PANEL NOT DETECTED; C. PNEUMONIAE- RESP PCR PANEL NOT DETECTED; INFLUENZA B - RESP PCR PANEL NOT DETECTED; M. PNEUMONIAE- RESP PCR PANEL NOT DETECTED; PARAINFLUENZA VIRUS 1 NOT DETECTED; PARAINFLUENZA VIRUS 2 NOT DETECTED; PARAINFLUENZA VIRUS 3 NOT DETECTED; PARAINFLUENZA VIRUS 4 NOT DETECTED; RSV- RESP PCR PANEL NOT DETECTED
== END 2023-07-11 17:37 | disposition home or self-care (01) ==
LOC: ED 16:06
DX: J40 Bronchitis, not specified as acute or chronic (principal); F17.200 Nicotine dependence, unspecified, uncomplicated; Z20.822 Contact with and (suspected) exposure to COVID-19; J44.1 Chronic obstructive pulmonary disease with (acute) exacerbation
CPT/HCPCS: 36415; 71045; 80053; 83690; 83880; 85025; 87633; 93005; 99284; A9270; J7512

== ENCOUNTER 2023-09-17 09:13 | Outpatient (CLI) | payer MEDICARE ==
--- NOTE | 2023-09-18 08:24 | Mammography Report ---
BILATERAL DIGITAL SCREENING MAMMOGRAM 3D/2D: 09/17/2023 CLINICAL: Routine screening. Family history of breast cancer. Comparison is made to exams dated: 12/13/2020 ultrasound, 12/13/2020 mammogram, 11/29/2020 mammogram, mammogram, 07/03/2018 mammogram, and 03/17/2017 mammogram - [facility]. Both breasts are heterogeneously dense, which may obscure small masses (category c / 51-75% glandular tissue). No significant masses, calcifications, or other findings are seen in either breast. There has been no significant interval change. IMPRESSION: NEGATIVE There is no mammographic evidence of malignancy. A 1 year screening mammogram is recommended. Based on the Tyrer Cuzick model (a risk assessment model) the patients lifetime risk is 10.7% and he r 10 year risk is 8.1%. According to the ACR, ACS, and NCCN guidelines, an annual breast MRI exam dhara ng with mammogram is recommended if the patients lifetime risk is 20% or greater. This exam was interpreted at Station ID: [id number]. NOTE: For mammograms, a report in lay terms will be sent to the patient. Approximately 15% of breast malignancies will not be visualized mammographically. In the management of a palpable breast mass, a negative mammogram must not discourage biopsy of a clinically suspicious lesion. Electronically Signed By: Velvet kennedy/freddy:09/17/2023 16:16:56 letter sent: No_Letter ACR BI-RADS Category 1: Negative 3341F PARENCHYMAL PATTERN: (D) - The breast(s) demonstrate(s) heterogeneously dense fibroglandular ashok senior. BI-RADS CATEGORY: (1) - 1 Mammogram [id number] 1 year screening LATERALITY: (B)
== END 2023-09-17 09:14 | disposition home or self-care (01) ==
LOC: DI.N 09:13
DX: Z12.31 Encounter for screening mammogram for malignant neoplasm of breast (principal); Z80.3 Family history of malignant neoplasm of breast; R92.333 Mammographic heterogeneous density, bilateral breasts

== ENCOUNTER 2023-11-21 07:24 | Outpatient (CLI) | payer MEDICARE ==
[2023-11-21 12:20] LABS: ESTIMATED AVERAGE GLUCOSE 131 mg/dL (70-100); HEMOGLOBIN A1c% 6.2 % (4.27-6.07)
[2023-11-21 12:30] LABS: ALBUMIN 4.6 g/dL (3.2-5.5); ALBUMIN/GLOBULIN RATIO 1.7 (1.0-2.2); ALKALINE PHOSPHATASE 54 IU/L (42-121); ALT ALANINE AMINOTRANSFERASE 26 IU/L (10-60); AST ASPARTATE AMINOTRANSFERASE 22 IU/L (10-42); BILIRUBIN,TOTAL 0.6 mg/dL (0.2-1.0); BUN - BLOOD UREA NITROGEN 20 mg/dL (6-20); CALCIUM 9.9 mg/dL (8.5-10.3); CARBON DIOXIDE - CO2 31 mmol/L (21-32); CHLORIDE 104 mmol/L (101-111); CHOL/HDL RATIO 2.9 (<4.4); CHOLESTEROL 189 mg/dL; CREATININE 0.8 mg/dL (0.6-1.3); GFR - MDRD 71 (>89); GLUCOSE 113 mg/dL (74-104); HDL CHOLESTEROL 65 mg/dL; LDL CHOLESTEROL,CALCULATED 105 mg/dL; LDL/HDL RATIO 1.6 (<4.4); SODIUM 140 mmol/L (135-145); TOTAL PROTEIN 7.3 g/dL (6.4-8.9); TRIGLYCERIDES 94 mg/dL (48-352); VLDL CHOLESTEROL 19 mg/dL
[2023-11-21 12:39] LABS: THYROID STIMULATING HORMONE 1.46 uIU/mL (0.34-5.60)
== END 2023-11-21 07:25 | disposition home or self-care (01) ==
LOC: LAB.N 07:24
PROVIDERS: ATTEND Family Medicine
DX: M81.0 Age-related osteoporosis without current pathological fracture (principal); R03.0 Elevated blood-pressure reading, without diagnosis of hypertension; Z13.6 Encounter for screening for cardiovascular disorders
CPT/HCPCS: 36415; 80053; 80061; 83036; 83721; 84443

== ENCOUNTER 2023-12-19 08:01 | Outpatient (CLI) | payer MEDICARE ==
--- NOTE | 2023-12-19 12:15 | DEXA Report ---
PROCEDURE: Dexa Spine and/or Hip INDICATIONS: POST MENOPAUSAL TECHNIQUE: Dual energy x-ray absorptiometry (DXA) was performed on a [employer] System. Regions measur ed are the AP Spine, femoral neck, and if needed forearm. COMPARISON: 11/22/2020, 07/03/2018, 03/21/2016 FINDINGS: Lumbar Spine: Bone Mineral Density: 0.705 g/cm/cm,T score: -4.0. Since the most recent prior study, there has been a statistically significant decrease in bone mineral density by 7.2 percent. Left Femoral Neck: Bone Mineral Density: 0.591 g/cm/cm, T score: -3.2. Left Hip: Bone Mineral Density: 0.507 g/cm/cm,T score: -4.0. Since the most recent prior study, there has been a statistically significant decrease in bone mineral density by 20.9 percent. (T score greater or equal to -1.0: NORMAL) (T score from -1.1 to -2.4: OSTEOPENIA) (T score less than or equal to -2.5 to: OSTEOPOROSIS) Impression: By WHO criteria, this patient has osteoporosis. Interval statistical decrease in bone mineral density of the lumbar spine. Interval statistical decre ase in bone mineral density of the hip. Patients with diagnosis of osteoporosis or osteopenia should have regular bone mineral density assess ment. For those eligible for Medicare, routine testing is allowed once every 2 years. Testing frequ ency can be increased for patients who have rapidly progressing disease or for those who are receivin g medical therapy to restore bone mass. Reviewed by: Kevin Leggett MD on 12/19/2023 12:13 PM PDT Approved by: Kevin Leggett MD on 12/19/2023 12:13 PM PDT Station ID: [id number]
== END 2023-12-19 08:02 | disposition home or self-care (01) ==
LOC: DI 08:01
PROVIDERS: ATTEND Family Medicine
DX: Z78.0 Asymptomatic menopausal state (principal); M81.0 Age-related osteoporosis without current pathological fracture

== ENCOUNTER 2024-08-07 11:11 | Observation (INO) ==
--- NOTE | 2024-08-07 11:44 | ED Physician Documentation ---
History of Present Illness Stated complaint Stated Complaint: SOA,HIGH HR Chief complaint Chief Complaint: Resp History obtained from History obtained from: Patient History of Present Illness Timing: How many weeks ago (1) Additonal information Additional information: Patient is a 73-year-old female presenting to the emergency department with shortness of breath and high heart rate. Patient comes in from the walk-in clinic after receiving 2 breathing treatments with no improvement in oxygen status. Patient on arrival saturating at 85% however appears in no acute distress sitting up speaking in full sentences without use of accessory muscles here in the ED. Patient started on 4 L of oxygen nasal cannula on arrival quickly improving saturation to 95%. She has a history of smoking for about 20 years but does not currently smoke. She notes for about a week she has been having eye phlegmy cough and shortness of breath with some nasal congestion as well. She denies any fevers no recent sick contacts. She thought maybe her symptoms were from [facility] Home Medications Ambulatory Orders Medication Instructions Recorded Confirmed albuterol sulfate 90 mcg/actuation 1 - 2 puff inhalation Q4HR PRN 07/11/23 08/07/24 aerosol inhaler (Ventolin HFA) Shortness Of Air/Wheezing #1 ea Allergies Allergies Allergy/AdvReac Type Severity Reaction Status Date / Time No Known Drug Allergies Allergy Verified 08/07/24 09:48 [facility] Medical History Medical History Former smoker Social History Social History (Updated 08/07/24 @ 11:28 by Celestino Dey RN) Smoking Status: Former smoker Number of Years Smoked: 20 Living arrangement: At home Relationship: Do you feel safe in your home environment?: Yes Suffered physical, verbal, emotional, or financial abuse?: No Exam Constitutional normal general appearance HENMT normocephalic and head/scalp atraumatic Eyes PERRL, EOMs intact bilaterally and conjunctivae normal Neck/C-Spine visual inspection normal and trachea midline Chest inspection of chest normal Respiratory breath sounds equal bilaterally, normal respiratory effort, clear to auscultation bilaterally and no wheezes No significant wheezing on exammination. No rhonchi or rales on examination. Cardiovascular normal heart rate noted, regular rhythm noted, no gallop and no rub Gastrointestinal abdomen normal to inspection Extremities No lower leg swelling or pitting edema to lower legs Results Vitals Vitals: Vital Signs - 24 hr 08/07/24 11:23 08/07/24 11:28 Temperature 37.3 C Temperature Source Temporal Artery Scan Pulse Rate 109 H 97 H Respiratory Rate 20 17 Blood Pressure 148/89 H 118/86 O2 Saturation 85 L 94 O2 Source Room air Room air Pain Intensity 0 0 Oxygen O2 Source Room air Labs Labs: Laboratory Tests 08/07/24 08/07/24 11:50 12:05 WBC 37.6 H* RBC 4.35 Hgb 13.2 Hct 40.3 MCV 92.6 MCH 30.3 MCHC 32.8 RDW 13.1 Plt Count 405 MPV 9.3 Neut # (Auto) Not Reportable Lymph # (Auto) Not Reportable [place] # (Auto) Not Reportable Eos # (Auto) Not Reportable Baso # (Auto) Not Reportable Absolute Nucleated RBC Not Reportable Total Counted 100 Band Neuts % (Manual) 2 Abnorm Lymph % (Manual) 0 Metamyelocytes % 1 H Nucleated RBC % Not Reportable Neutrophils # (Manual) 35.3 H Lymphocytes # (Manual) 1.5 Monocytes # (Manual) 0.4 Eosinophils # (Manual) 0.0 Basophils # (Manual) 0.0 Differential Comment MANUAL DIFFERENTIAL Platelet Estimate NORMAL (130-450,000) Platelet Morphology NORMAL APPEARANCE RBC Morph Micro Appear NORMAL APPEARANCE Sodium 138 Potassium 4.1 Chloride 99 L Carbon Dioxide 29 Anion Gap 10.0 BUN 21 H Creatinine 0.5 L Estimated GFR (MDRD) 121 Glucose 140 H Calcium 9.7 Total Bilirubin 0.3 AST 23 ALT 37 Alkaline Phosphatase 183 H B-Natriuretic Peptide 193 H Total Protein 7.3 Albumin 4.0 Globulin 3.3 Albumin/Globulin Ratio 1.2 Nasal Adenovirus (PCR) NOT DETECTED Nasal B. parapertussis DNA (PCR) NOT DETECTED Nasal Coronavir 229E PCR NOT DETECTED Nasal Coronavir HKU1 PCR NOT DETECTED Nasal Coronavir NL63 PCR NOT DETECTED Nasal Coronavir OC43 PCR NOT DETECTED Nasal Enterovir/Rhinovir PCR NOT DETECTED Nasal Influenza B PCR NOT DETECTED Nasal Influenza A PCR NOT DETECTED Nasal Parainfluen 1 PCR NOT DETECTED Nasal Parainfluen 2 PCR NOT DETECTED Nasal Parainfluen 3 PCR NOT DETECTED Nasal Parainfluen 4 PCR NOT DETECTED Nasal RSV (PCR) NOT DETECTED Nasal B.pertussis DNA PCR NOT DETECTED Nasal C.pneumoniae (PCR) NOT DETECTED Milind Human Metapneumo PCR NOT DETECTED Nasal M.pneumoniae (PCR) NOT DETECTED Nasal SARS-CoV-2 (PCR) NOT DETECTED PD Medical Decision Making ED course Complexity details: reviewed old records and reviewed results ED course: Patient is a 73-year-old female presenting to the emergency department with shortness of breath she came from walk-in clinic as she was notably 85% on a rrival she received 2 breathing treatments with no changes in her oxygen status. She appears in no acute distress speaking full sentences no accessory muscle use but she is sitting up in bed. Vitals on arrival show 85% oxygen and tachycardic to 109 afebrile normal respiratory rate. She was started on 4 L nasal cannula oxygen and improved to 95% here in the emergency department no history of COPD or asthma she has a former history of smoking. She notes for about a week she has been more fatigued and tired having no cough with runny nose. She has no recent sick contacts no fevers at home she has been eating and drinking less due to generally feeling unwell. CXR shows: No signs of pneumonia however possible hazy infiltrate not reported by radiology and right lower lobe. Will cover patient with antibiotics ceftriaxone and azithromycin here in the ED. No history of allergies to antibiotics. BNP within normal range no signs of fluid overload on examination. Patient has significant leukocytosis with leftward shift consistent with acute infection. Patient remained saturating at 94% on 3 L nasal cannula. Discussed case with hospitalist Dr. Purvis who is agreeable with admission. No other acute interventions done for patient here in the ED. She is agreeable with admission at this time. Discharge Plan Discharge Prescriptions: No Action albuterol sulfate [Ventolin HFA] 200 PUFFS/18 GM HFA aerosol inhaler 1 - 2 puff inhalation Q4HR PRN (Reason: Shortness Of Air/Wheezing) Qty: 1 0RF Print Language: Danish Stand Alone Forms: PCP List
[2024-08-07 11:56] LABS: BASOPHILS % (AUTO) 0.4 %; HCT - HEMATOCRIT 40.3 % (37.0-47.0); HGB - HEMOGLOBIN 13.2 g/dL (12.0-16.0); LYMPHOCYTES % (AUTO) 4.5 %; MEAN CORPUSCULAR HEMOGLOBIN 30.3 pg (27.0-31.0); MEAN CORPUSCULAR HGB CONC 32.8 g/dL (32.0-36.0); MEAN CORPUSCULAR VOLUME 92.6 fL (81.0-99.0); MEAN PLATELET VOLUME 9.3 fL (7.9-10.8); MONOCYTES % (AUTO) 3.1 %; NEUTROPHILS % (AUTO) 90.3 %; PLT - PLATELET COUNT 405 10^3/uL (130-450); RED BLOOD COUNT 4.35 10^6/uL (4.20-5.40); RED CELL DISTRIBUTION WIDTH 13.1 % (12.0-15.0)
[2024-08-07 12:02] LABS: WHITE BLOOD COUNT 37.6 x10^3/uL (4.8-10.8)
[2024-08-07 12:03] LABS: ABNORMAL LYMPHS % (MANUAL) 0 %
--- NOTE | 2024-08-07 12:09 | XRAY Report ---
PROCEDURE: XR Chest 2V INDICATIONS: sob TECHNIQUE: 2 views of the chest were acquired. COMPARISON: 07/11/2023. FINDINGS: Surgical changes and devices: None. Lungs and pleura: There is right lower lung bronchiectasis without focal consolidation, effusion, or pneumothorax. The lungs are hyperinflated. Mediastinum: Mediastinal contours appear normal. Heart size is normal. Bones and chest wall: No suspicious bony lesions. Overlying soft tissues appear unremarkable. IMPRESSION: Likely COPD with bronchiectasis but no acute cardiopulmonary process. Reviewed by: Rosina Dumont MD on 08/07/2024 11:08 AM [facility] Approved by: Rosina Dumont MD on 08/07/2024 11:08 AM [facility] Station ID: [id number]
[2024-08-07 12:12] LABS: ALBUMIN/GLOBULIN RATIO 1.2 (1.0-2.2); BILIRUBIN,TOTAL 0.3 mg/dL (0.2-1.0); CALCIUM 9.7 mg/dL (8.5-10.3); CREATININE 0.5 mg/dL (0.6-1.3); POTASSIUM 4.1 mmol/L (3.5-4.5); TOTAL PROTEIN 7.3 g/dL (6.4-8.9)
[2024-08-07 12:18] LABS: BAND NEUTROPHILS % (MANUAL) 2 %; DIFFERENTIAL COMMENT MANUAL DIFFERENTIAL; LYMPHOCYTES # (MANUAL) 1.5 10^3/uL (1.5-3.5); LYMPHOCYTES % (MANUAL) 4 %; METAMYELOCYTES % (MANUAL) 1 %; MONOCYTES # (MANUAL) 0.4 10^3/uL (0.0-1.0); NEUTROPHILS # (MANUAL) 35.3 10^3/uL (1.5-6.6); PLATELET ESTIMATE, MANUAL NORMAL (130-450,000) (NORMAL); PLATELET MORPHOLOGY NORMAL APPEARANCE (NORMAL); RBC MORPHOLOGY (MULTIPLE) NORMAL APPEARANCE (NORMAL)
[2024-08-07 13:03] LABS: B. PARAPERTUSSIS- RESP PCR PAN NOT DETECTED; B. PERTUSSIS- RESP PCR PANEL NOT DETECTED; C. PNEUMONIAE- RESP PCR PANEL NOT DETECTED; CORONAVIRUS 229E-RESP PCR NOT DETECTED; CORONAVIRUS HKU1-RESP PCR NOT DETECTED; CORONAVIRUS NL63-RESP PCR NOT DETECTED; CORONAVIRUS OC43-RESP PCR NOT DETECTED; HUMAN METAPNEUMOVIRUS NOT DETECTED; INFLUENZA A- RESP PCR PANEL NOT DETECTED; INFLUENZA B - RESP PCR PANEL NOT DETECTED; M. PNEUMONIAE- RESP PCR PANEL NOT DETECTED; PARAINFLUENZA VIRUS 1 NOT DETECTED; PARAINFLUENZA VIRUS 2 NOT DETECTED; PARAINFLUENZA VIRUS 3 NOT DETECTED; PARAINFLUENZA VIRUS 4 NOT DETECTED; RHINOVIRUS/ENTEROVIRUS NOT DETECTED; RSV- RESP PCR PANEL NOT DETECTED; SARS-CoV-2 -RESP PCR PANEL NOT DETECTED
--- NOTE | 2024-08-07 13:37 | HISTORY & PHYSICAL EXAMINATION ---
Chief Complaint Chief Complaint Chief Complaint: Cough, dyspnea, feeling unwell History of Present Illness Admitted From Admitted From:: Walk in clinic, [facility] History Obtained From Records Reviewed: Yes History obtained from: Patient Exam Limitations: None History of Present Illness HPI Comment/Other: Patient is a 73-year-old female with a history of remote tobacco use who presents from a walk-in clinic. She said that approximately one week ago, she started having a productive cough. She volunteers for [employer], and she thinks that she had an allergic reaction to a cleaning product. After this, she had some sinus congestion for a week. She has a cough as well, with some clear to green sputum production. She denies any fevers or chills. She says she has had decreased appetite since as well. Of note, patient has no diagnosis of COPD. She does have an albuterol inhaler that she has at home, but has not used in many years. She has a remote smoking history. She quit approximately 20 years ago. She was smoking about 1-1.5 packs for about 15 years. She has no other medical problems, does not take any other medications. She has had no recent travel. She has no lower extremity swelling. She is very active. She does live by herself, but she does not use a walker or cane. Her son does live nearby. She was feeling progressively worse, so she went to her walk-in clinic. There, she was found to be saturating 84 to 86%. The physician did give her a dose of Decadron, as well as 2 breathing treatments, without much improvement in symptoms. Meds/Allgy Home Medications Ambulatory Orders Medication Instructions Recorded Confirmed albuterol sulfate 90 mcg/actuation 1 - 2 puff inhalation Q4HR PRN 07/11/23 08/07/24 aerosol inhaler (Ventolin HFA) Shortness Of Air/Wheezing #1 ea calcium carbonate (Oyster Shell 1,000 mg PO BID 08/07/24 08/07/24 Calcium) cholecalciferol (vitamin D3) 50 2,000 unit PO DAILY 08/07/24 08/07/24 mcg (2,000 unit) capsule magnesium oxide 400 mg (241.3 mg 400 mg PO DAILY 08/07/24 08/07/24 magnesium) tablet (MagOx) multivitamin 1 tab PO DAILY 08/07/24 08/07/24 omega-3 700 qc-kdp-wne-ala-fish 2 cap PO DAILY 08/07/24 08/07/24 oil-flaxseed 320 mg-vit E capsule,DR Allergies Allergies Allergy/AdvReac Type Severity Reaction Status Date / Time No Known Drug Allergies Allergy Verified 08/07/24 09:48 [facility] Medical History Medical History Former smoker Social History Social History Smoking Status: Former smoker If you are a former smoker, when did you quit? (Date/Year): 09/29/2023 Number of Years Smoked: 15 Second hand tobacco smoke exposure: Yes (sometimes) Do you dip or chew tobacco?: No Do you vape?: No Living arrangement: At home Relationship: Child Level: Independent Do you feel safe in your home environment?: Yes Suffered physical, verbal, emotional, or financial abuse?: No POLST Patient has POLST: Yes POLST Status: DNR Review of Systems Constitutional Reports: Malaise, Weakness, Changes in appetite or eating habits and Poor appetite; Denies: Fatigue, Fever, Chills, Diaphoresis or Night sweats Eyes Denies: Pain, Irritation, Amaurosis, Blurry vision, Floaters, Field loss, Vision loss or Change in vision Ears, nose, mouth, and throat Reports: Nasal discharge, Nasal congestion and Post nasal drip; Denies: Ear pain, Ear discharge, Hearing loss, Hearing aids, Nasal pain, Nose bleeds, Mouth lesions, Bleeding gums, Dry mouth, Bad breath or Neck pain Cardiovascular Reports: shortness of breath with exertion; Denies: Irregular heart rate, chest pain, palpitations, edema, swelling of feet/ankles, Syncope or lightheadedness Respiratory Reports: Shortness of breath, Cough, Sputum production and Change in phlegm color; Denies: Wheezing, Apnea, Snoring or Stridor Gastrointestinal Reports: Poor appetite; Denies: Abdominal pain, Abdominal distention, Nausea, Vomiting, Coffee grounds in vomit, Heartburn, Diarrhea or Constipation Genitourinary Denies: Painful urination, Urinary frequency, Urinary urgency, Nocturia, Urinary incontinence, Decreased urine ouput or Pelvic pain Musculoskeletal Denies: Back pain, Neck pain, Extremity pain, Extremity swelling, Gout or Joint pain Integumentary/Breast Denies: Rash, Itching, Dryness, Redness, Skin pain, Skin tenderness or Skin swelling Neurological Reports: Headache and General weakness; Denies: Focal weakness, Weakness in extremities or Numbness in extremities Psychiatric Denies: Depression, Anxiety, Mood swings, Panic attacks or Change in sleep pattern Endocrine Denies: Excessive urination, Excessive thirst, Polyphagia or Fatigue Hematologic/Lymphatic Denies: Anemia, Easy bruising, Petechiae or Easy bleeding Allergic/Immunologic Reports: Itchy eyes; Denies: Wheezing Prior Level of Functionality: Independent, ambulates without assistive device. Exam Constitutional normal general appearance, no apparent distress, abnormal body habitus (underweight) and alert HENMT head/scalp atraumatic, hearing grossly normal bilaterally, external ears normal and oropharynx abnormal (erythema) Eyes PERRL, EOMs intact bilaterally and conjunctivae normal Neck/C-Spine visual inspection normal, trachea midline and cervical spine nontender Lymph no lymphadenopathy noted and no lymphedema noted Chest inspection of chest normal and palpation of chest normal Respiratory breath sounds equal bilaterally, normal respiratory effort, clear to auscultation bilaterally and wheezing noted (expiratory wheezes) (bilateral lower lung egan) Cardiovascular normal heart rate noted, regular rhythm noted, no gallop, no rub and no murmur Gastrointestinal abdomen normal to inspection, abdomen soft to palpation and nontender to palpation Genitourinary no CVA tenderness and bladder normal to palpation Back/Pelvis spine normal to inspection and no thoracic spine tenderness Extremities normal to inspection, normal to palpation, no tenderness and full ROM Neurology no movement abnormality noted, no focal motor deficit noted, no sensory deficits noted, gait normal, speech normal and coordination normal Psychiatry mental status grossly normal, oriented x3, thought process normal, cooperative and affect normal Skin no rash, no lesions, no ecchymosis noted, no wounds and no lacerations Sepsis Event Note (H) Sepsis Criteria Sepsis Criteria: Suspected or Documented, Recorded Heart Rate greater than 90 bpm and WBC count greater than 12,000 or less than 4000 Conclusion/Plan Problem List (1) Acute hypoxic respiratory failure: Plan: Patient requiring 2 L. No formal diagnosis of COPD. Has a remote history of tobacco use. Lung exam does show some mild expiratory wheezing in the lower lung egan. Low likehlihood of PE - Wells criteria 0. Will continue to monitor. Patient has a leukocytosis, cough productive of yellow to green sputum, as well as feelings of malaise and chills. Received a dose of Rocephin and azithromycin in the ED. Procalcitonin within normal limits. Received one dose of Rocephin and azithromycin, not continued. (2) Leukocytosis: Plan: White blood cell count elevated at 37.6. Will continue to trend. Could be reactive to the Decadron, as well as due to the possible underlying infectious process. Qualifiers: Leukocytosis type: unspecified Qualified Code(s): D72.829 - Elevated white blood cell count, unspecified (3) Former smoker: Plan: She has a remote smoking history. She quit approximately 20 years ago. She was smoking about 1-1.5 packs for about 15 years. No formal diagnosis of COPD. Will need PFTs done in outpatient setting. Lab Results Lab results reviewed: Yes 08/07/24 11:50 08/07/24 11:50 Diagnostic Imaging Results Diagnostic Imaging Results: positive Final report reviewed Diagnostic Imaging Results Comments: Chest x-ray reviewed: Likely COPD with bronchiectasis but no acute cardiopulmonary process. EKG Results EKG Interpreted Independently: Yes Core Measures Anticipated LOS I expect patient to be DC'd or transferred within 96 hours.: Yes DVT/VTE - Prophylaxis VTE/DVT Device ordered at admit?: Yes VTE/DVT Prophylaxis med ordered at admit?: Yes Stroke - Rehab Assessment Rehab services assessment to be ordered?: No Not Ordered - Medical Reason: Not indicated AMI - Statin at Admit Aspirin Prescribed on Admit: No Not Ordered - Medical Reason: Not indicated
[2024-08-07] MEDS: cefTRIAXone 1 GM in SODIUM CHLORIDE 0.9% MINIBAG 100 ML IV STA (13:48)
[2024-08-07] MEDS ORDERED: ACETAMINOPHEN 325 MG TABLET PO PRN (14:26)
[2024-08-07] MEDS ORDERED: SODIUM CHLORIDE FLUSH 0.9% 10 ML SYRINGE IVP PRN (14:26)
[2024-08-07] MEDS: AZITHROMYCIN INJ 500 MG in SODIUM CHLORIDE 0.9% 250 ML IV STA (14:36)
[2024-08-07] MEDS: IPRATROPIUM/ALBUTEROL 3 ML NEB INH SCH (14:58)
--- NOTE | 2024-08-07 15:47 | PHARMACY PROGRESS NOTE ---
Best Possible Medication History Admit Date and Time: 08/07/24 [id number] Home Medications Medication Instructions Recorded Confirmed Type albuterol sulfate 90 mcg/actuation 1 - 2 puff inhalation Q4HR PRN 07/11/23 08/07/24 Rx aerosol inhaler (Ventolin HFA) Shortness Of Air/Wheezing #1 ea calcium carbonate (Oyster Shell 1,000 mg PO BID 08/07/24 08/07/24 History Calcium) cholecalciferol (vitamin D3) 50 2,000 unit PO DAILY 08/07/24 08/07/24 History mcg (2,000 unit) capsule magnesium oxide 400 mg (241.3 mg 400 mg PO DAILY 08/07/24 08/07/24 History magnesium) tablet (MagOx) multivitamin 1 tab PO DAILY 08/07/24 08/07/24 History omega-3 700 kz-tmt-jop-ala-fish 2 cap PO DAILY 08/07/24 08/07/24 History oil-flaxseed 320 mg-vit E capsule Processed by: Pharmacy Medications reviewed in ED?: No Medication History completed: Yes Patient Interview: Completed Secondary Source(s): Pharmacy records and Insurance records [facility] Statement: As the person ultimately responsible for medication therapy, providers are able to order a medication from an existing home medication list in [facility] via the "Reconcile Routine" prior to Confirmation of that medication by retail support manager. Such practice is discouraged except when the physician, in their clinical judgment, deems that a medical need exists for a medication without regard to previous use.
[2024-08-07] MEDS: SODIUM CHLORIDE FLUSH 0.9% 10 ML SYRINGE IVP SCH (16:41)
[2024-08-08 07:32] LABS: HCT - HEMATOCRIT 39.7 % (37.0-47.0); HGB - HEMOGLOBIN 13.2 g/dL (12.0-16.0); MEAN CORPUSCULAR HEMOGLOBIN 30.9 pg (27.0-31.0); MEAN CORPUSCULAR HGB CONC 33.2 g/dL (32.0-36.0); MEAN PLATELET VOLUME 9.6 fL (7.9-10.8); RED BLOOD COUNT 4.27 10^6/uL (4.20-5.40); RED CELL DISTRIBUTION WIDTH 13.2 % (12.0-15.0)
[2024-08-08 07:34] LABS: WHITE BLOOD COUNT 38.3 x10^3/uL (4.8-10.8)
[2024-08-08 07:45] LABS: CREATININE 0.6 mg/dL (0.6-1.3); POTASSIUM 4.6 mmol/L (3.5-4.5)
[2024-08-08] MEDS: predniSONE 20 MG TABLET PO SCH (08:30)
[2024-08-08] MEDS: ENOXAPARIN 40 MG/0.4 ML SYRINGE SUBQ SCH (08:30)
[2024-08-08] MEDS: AZITHROMYCIN 250 MG TABLET PO SCH (09:15)
[2024-08-08] MEDS: AMOX/CLAV 875 MG/125 MG TABLET PO SCH (09:15)
--- NOTE | 2024-08-08 10:32 | PROVIDER PROGRESS NOTE ---
Subjective Subjective Subjective: Today, patient still states that she feels weak. She still has a cough productive of some clear to white sputum. She denies any fevers. She does feel occasionally diaphoretic and has some chills. She did walk around with respiratory therapy, and completed desaturation test. She went as low as 88% on room air. She did recover with just 1 L of oxygen. She does not have a diagnosis of COPD. She has a very remote tobacco use history. She understands that she is to see a automobile tire builder in the outpatient setting to get PFT studies done. Current Medications Current Medications Current Medications: Current Medications Generic Name Dose Route Start Last Admin Trade Name Freq PRN Reason Stop Dose Admin Acetaminophen 650 mg 08/07/24 14:26 Acetaminophen 325 Mg Tablet PO Q4HR PRN Pain 1 to 4, or Fever Albuterol/Ipratropium 3 ml 08/07/24 15:00 08/08/24 07:01 Ipratropium/Albuterol 3 Ml Neb INH 3 ml RTQID HOWARD Administration Amoxicillin/Clavulanate Potassium 1 tab 08/08/24 09:00 08/08/24 09:15 Amox/Clav 875 Mg/125 Mg Tablet PO 1 tab BID HOWARD Administration Azithromycin 250 mg 08/08/24 09:00 08/08/24 09:15 Azithromycin 250 Mg Tablet PO 250 mg DAILY HOWARD Administration Enoxaparin Sodium 40 mg 08/08/24 09:00 08/08/24 08:30 Enoxaparin 40 Mg/0.4 Ml Syringe SUBQ 40 mg DAILY HOWARD Administration Prednisone 40 mg 08/08/24 09:00 08/08/24 08:30 Prednisone 20 Mg Tablet PO 40 mg DAILY HOWARD Administration Sodium Chloride 10 ml 08/07/24 14:26 Sodium Chloride Flush 0.9% 10 Ml Syringe IVP PRN PRN NEEDED PER PROVIDER ORDERS Sodium Chloride 10 ml 08/07/24 17:00 08/08/24 08:31 Sodium Chloride Flush 0.9% 10 Ml Syringe IVP 10 ml 0100,0900,1700 HOWARD Administration Objective Vital Signs/Intake & Output Reviewed Vital Signs: Yes Vital Signs: Vital Signs x48h Temp Pulse Pulse Resp BP Pulse Ox O2 Flow Rate 08/08/24 09:21 110 H 08/08/24 07:04 882 H 20 08/08/24 03:38 98.1 F 94 H 20 143/85 H 93 1 Intake & Output: Intake & Output 08/06/24 08/07/24 08/08/24 08/09/24 05:59 05:59 05:59 05:59 Intake Total 1300 / 1300 360 / 360 Output Total 50 / 50 Balance 1250 / 1250 360 / 360 Weight (kg) 35.5 kg Objective General Appearance: positive No acute distress, Alert and Anxious Eyes Bilateral: positive Normal inspection, PERRL and EOMI ENT: positive ENT inspection nml, Pharynx nml and No signs of dehydration; negative Pharyngeal erythema Neck: positive Nml inspection, Thyroid nml, No JVD and Trachea midline Respiratory: positive Chest non-tender, No respiratory distress and Breath sounds nml; negative Wheezes (no expiratory wheezes noted on exam today), Rales or Rhonchi (mild bibasilar rhonchi noted) Cardiovascular: positive Regular rate & rhythm, No murmur and Tachycardia Abdomen: positive Non-tender and No distention; negative Tenderness, Guarding, Rebound, Hepatomegaly or Splenomegaly Back: positive Nml inspection; negative CVA tenderness (R) or CVA tenderness (L) Skin: positive Color nml, No rash and Warm Extremities: positive Non-tender and No pedal edema Neurologic/Psychiatric: positive Oriented x3 and Motor nml Lab Results 08/08/24 07:20 08/08/24 07:20 Other Labs: Lab Results x24hrs 08/08/24 08/07/24 08/07/24 Range/Units 07:20 12:05 11:50 WBC 38.3 H* 37.6 H* (4.8-10.8) x10^3/uL RBC 4.27 4.35 (4.20-5.40) 10^6/uL Hgb 13.2 13.2 (12.0-16.0) g/dL Hct 39.7 40.3 (37.0-47.0) % MCV 93.0 92.6 (81.0-99.0) fL MCH 30.9 30.3 (27.0-31.0) pg MCHC 33.2 32.8 (32.0-36.0) g/dL RDW 13.2 13.1 (12.0-15.0) % Plt Count 457 H 405 (130-450) 10^3/uL MPV 9.6 9.3 (7.9-10.8) fL Neut # (Auto) Not Reportable Lymph # (Auto) Not Reportable [place] # (Auto) Not Reportable Eos # (Auto) Not Reportable Baso # (Auto) Not Reportable Absolute Nucleated RBC Not Reportable Total Counted 100 Band Neuts % (Manual) 2 (0 - 10) % Abnorm Lymph % (Manual) 0 % Metamyelocytes % 1 H ( - 0) % Nucleated RBC % Not Reportable Neutrophils # (Manual) 35.3 H (1.5-6.6) 10^3/uL Lymphocytes # (Manual) 1.5 (1.5-3.5) 10^3/uL Monocytes # (Manual) 0.4 (0.0-1.0) 10^3/uL Eosinophils # (Manual) 0.0 (0-0.7) 10^3/uL Basophils # (Manual) 0.0 (0-0.1) 10^3/uL Differential Comment MANUAL DIFFERENTIAL Platelet Estimate NORMAL (130-450,000) (NORMAL) Platelet Morphology NORMAL APPEARANCE (NORMAL) RBC Morph Micro Appear NORMAL APPEARANCE (NORMAL) Sodium 140 138 (135-145) mmol/L Potassium 4.6 H 4.1 (3.5-4.5) mmol/L Chloride 101 99 L (101-111) mmol/L Carbon Dioxide 31 29 (21-32) mmol/L Anion Gap 8.0 10.0 (6-13) BUN 28 H 21 H (6-20) mg/dL Creatinine 0.6 0.5 L (0.6-1.3) mg/dL Estimated GFR (MDRD) 98 121 (>89) Glucose 128 H 140 H (74-104) mg/dL Calcium 10.0 9.7 (8.5-10.3) mg/dL Total Bilirubin 0.3 (0.2-1.0) mg/dL AST 23 (10-42) IU/L ALT 37 (10-60) IU/L Alkaline Phosphatase 183 H (42-121) IU/L B-Natriuretic Peptide 193 H (5-100) pg/mL Total Protein 7.3 (6.4-8.9) g/dL Albumin 4.0 (3.2-5.5) g/dL Globulin 3.3 (2.1-4.2) g/dL Albumin/Globulin Ratio 1.2 (1.0-2.2) Procalcitonin Immunoas 0.47 (<0.5) ng/mL Nasal Adenovirus (PCR) NOT DETECTED Nasal B. parapertussis DNA (PCR) NOT DETECTED Nasal Coronavir 229E PCR NOT DETECTED Nasal Coronavir HKU1 PCR NOT DETECTED Nasal Coronavir NL63 PCR NOT DETECTED Nasal Coronavir OC43 PCR NOT DETECTED Nasal Enterovir/Rhinovir PCR NOT DETECTED Nasal Influenza B PCR NOT DETECTED Nasal Influenza A PCR NOT DETECTED Nasal Parainfluen 1 PCR NOT DETECTED Nasal Parainfluen 2 PCR NOT DETECTED Nasal Parainfluen 3 PCR NOT DETECTED Nasal Parainfluen 4 PCR NOT DETECTED Nasal RSV (PCR) NOT DETECTED Nasal B.pertussis DNA PCR NOT DETECTED Nasal C.pneumoniae (PCR) NOT DETECTED Milind Human Metapneumo PCR NOT DETECTED Nasal M.pneumoniae (PCR) NOT DETECTED Nasal SARS-CoV-2 (PCR) NOT DETECTED Diagnostic Imaging Diagnostic Imaging Results: positive Final report reviewed Sepsis Event Note (H) Evaluation Current Stage of Sepsis: Ruled out Sepsis Criteria Sepsis Criteria: Suspected or Documented, Recorded Heart Rate greater than 90 bpm and WBC count greater than 12,000 or less than 4000 Assessment/Plan Problem List (1) Acute hypoxic respiratory failure: Impression: Patient requiring 1-2 L at rest. Desaturation to as low as 88% with ambulation today. No formal diagnosis of COPD. Has a remote history of tobacco use. Lung exam does show some mild expiratory wheezing in the lower lung egan yesterday; today, there are bibasilar rhonchi. Low likehlihood of PE - Wells criteria score of 0. Will continue to monitor. Patient has a worsening leukocytosis, cough productive of yellow to green sputum, as well as feelings of malaise and chills. Received a dose of Rocephin and azithromycin in the ED. Procalcitonin within normal limits. Transition to oral Augmentin and azithromycin for a total duration of 5 days. (2) Community acquired pneumonia: Impression: Patient has a worsening leukocytosis, cough productive of yellow to green sputum, as well as feelings of malaise and chills. CXR shows likely COPD with bronchiectasis but no acute cardiopulmonary process. Procalcitonin within normal limits. Clinically, patient appears to have pneumonia. Received a dose of Rocephin and azithromycin in the ED. Transition to oral Augmentin and azithromycin for a total duration of 5 days. Qualifiers: Laterality: unspecified laterality Qualified Code(s): J18.9 - Pneumonia, unspecified organism (3) Leukocytosis: Impression: Markedly elevated white blood cell count, that uptrended overnight. Will continue to trend. Could be reactive to the Decadron, as well as due to the possible underlying infectious process. Laboratory Tests 08/07/24 08/08/24 11:50 07:20 WBC 37.6 H* 38.3 H* Qualifiers: Leukocytosis type: unspecified Qualified Code(s): D72.829 - Elevated white blood cell count, unspecified (4) Former smoker: Impression: She has a remote smoking history. She quit approximately 20 years ago. She was smoking about 1-1.5 packs for about 15 years. No formal diagnosis of COPD. Will need PFTs done in outpatient setting.
[2024-08-09 05:30] LABS: HCT - HEMATOCRIT 40.6 % (37.0-47.0); MEAN CORPUSCULAR VOLUME 93.8 fL (81.0-99.0); MEAN PLATELET VOLUME 9.5 fL (7.9-10.8); RED BLOOD COUNT 4.33 10^6/uL (4.20-5.40); RED CELL DISTRIBUTION WIDTH 13.2 % (12.0-15.0); WHITE BLOOD COUNT 33.9 x10^3/uL (4.8-10.8)
[2024-08-09 05:53] LABS: CALCIUM 9.4 mg/dL (8.5-10.3); CREATININE 0.6 mg/dL (0.6-1.3); POTASSIUM 4.3 mmol/L (3.5-4.5)
[2024-08-09 12:33] VITALS: O2SAT 95
--- NOTE | 2024-08-09 14:28 | Discharge Summary ---
Discharge Summary Admit Date: 08/07/24 Discharge Date: 08/09/24 Discharging Provider: Chela Butts MD Primary Care Provider: Kimberly Beck MD Code Status: Attempt Resuscitation DIAGNOSES Discharge Diagnoses with Status of Each Condition: 1. Acute hypoxic respiratory failure 2. Abnormal chest x-ray indicating community-acquired pneumonia versus bronchiectasis 3. Leukocytosis to 38,000 4. Former smoker 5. History of allergic rhinitis and asthma as a child 6. History of cleaning solvent exposure, self stated, 1 week ago HPI History of Present Illness: Patient is a 73-year-old female with a history of remote tobacco use who presents from a walk-in clinic. She said that approximately one week ago, she started having a productive cough. 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 After this, she had some sinus congestion for a week. She has a cough as well, with some clear to green sputum production. She denies any fevers or chills. She says she has had decreased appetite since as well. Of note, patient has no diagnosis of COPD. She does have an albuterol inhaler that she has at home, but has not used in many years. She has a remote smoking history. She quit approximately 20 years ago. She was smoking about 1-1.5 packs for about 15 years. She has no other medical problems, does not take any other medications. She has had no recent travel. She has no lower extremity swelling. She is very active. She does live by herself, but she does not use a walker or cane. Her son does live nearby. She was feeling progressively worse, so she went to her walk-in clinic. There, she was found to be saturating 84 to 86%. The physician did give her a dose of Decadron, as well as 2 breathing treatments, without much improvement in symptoms CONSULTS | PROCEDURES Procedures: Chest x-ray with right lower lung bronchiectasis without focal consolidation, effusion or pneumothorax. Lungs are hyperinflated. No blood cultures done. HOSPITAL COURSE Hospital Course: (1) Acute hypoxic respiratory failure: Impression: Patient requiring 1-2 L at rest. Desaturation to as low as 88% with ambulation. No formal diagnosis of COPD In spite of the fact that she has clubbing of her nailbeds. Has a remote history of tobacco use. Lung exam does show some mild expiratory wheezing in the lower lung egan then bibasilar rhonchi and then silent lungs at discharge without respiratory distress. Low likehlihood of PE - Wells criteria score of 0. On the day of discharge she still feels fatigued. But feels safe being discharged home on home oxygen. She received a desaturation test and and is hypoxic on room air. She is requiring oxygen at 2 L. I will be ordering that through a durable medical good service. Patient has a worsening leukocytosis, cough productive of yellow to green sputum, as well as feelings of malaise and chills. Received a dose of Rocephin and azithromycin in the ED. Procalcitonin within normal limits. Transitioned to oral Augmentin and azithromycin for a total duration of 5 days. (2) Community acquired pneumonia vs. bronchiectasis. Impression: Patient has a worsening leukocytosis, cough productive of yellow to green sputum, as well as feelings of malaise and chills. CXR shows likely COPD with bronchiectasis but no acute cardiopulmonary process. Procalcitonin within normal limits. Clinically, patient appears to have pneumonia. Received a dose of Rocephin and azithromycin in the ED. Transition to oral Augmentin and azithromycin for a total duration of 5 days. She will be discharged on Augmentin for 10 more doses. She will be discharged on azithromycin for 1 more dose. Qualifiers: Laterality: unspecified laterality Qualified Code(s): J18.9 - Pneumonia, unspecified organism (3) Leukocytosis: Impression: Markedly elevated white blood cell count, that uptrended overnight. Could be reactive to the Decadron, as well as due to the possible underlying infectious process.She did not have a left shift. However she did have 1% metamyelocytes. And 1100 monocytes. Laboratory Tests 08/07/24 08/08/24 11:50 07:20 WBC 37.6 H* 38.3 H* At discharge she is still high at 33.9 thousand. She denies unexpected weight changes. B symptoms. I would recommend that she get a repeat CBC and her primary care provider office. And reflex to a peripheral flow cytometry blood draw to evaluate for possible leukemia or lymphoma. (4) Former smoker: Impression: She has a remote smoking history. She quit approximately 20 years ago. She was smoking about 1-1.5 packs for about 15 years. No formal diagnosis of COPD. Will need PFTs done in outpatient setting. ALLERGIES Allergies Allergy/AdvReac Type Severity Reaction Status Date / Time No Known Drug Allergies Allergy Verified 08/07/24 09:48 MEDICATIONS Ambulatory Orders Medication Instructions Recorded Confirmed albuterol sulfate 90 mcg/actuation 1 - 2 puff inhalation Q4HR PRN 07/11/23 08/07/24 aerosol inhaler (Ventolin HFA) Shortness Of Air/Wheezing #1 ea calcium carbonate (Oyster Shell 1,000 mg PO BID 08/07/24 08/07/24 Calcium) cholecalciferol (vitamin D3) 50 2,000 unit PO DAILY 08/07/24 08/07/24 mcg (2,000 unit) capsule magnesium oxide 400 mg (241.3 mg 400 mg PO DAILY 08/07/24 08/07/24 magnesium) tablet (MagOx) multivitamin 1 tab PO DAILY 08/07/24 08/07/24 omega-3 700 is-zwm-isz-ala-fish 2 cap PO DAILY 08/07/24 08/07/24 oil-flaxseed 320 mg-vit E capsule, amoxicillin 875 mg-potassium 1 tab PO BID #10 tabs 08/09/24 clavulanate 125 mg tablet azithromycin 250 mg tablet 250 mg PO DAILY #1 tab 08/09/24 fluticasone 500 mcg-salmeterol 50 1 inh inhalation BID #1 ea 08/09/24 mcg/dose blistr powdr for inhalation (Wixela Inhub) PHYSICAL EXAM AT DISCHARGE General Appearance: positive No acute distress, Alert and Other (thin/chachectic, fatigued appearing) Eyes Bilateral: positive PERRL ENT: positive No signs of dehydration Neck: positive Nml inspection, Thyroid nml and No JVD; negative Stiff neck or Carotid bruit Respiratory: positive No respiratory distress and Other (no rhonchi or wheezing today, comfortable with speaking to me, but lungs very quiet. ) Cardiovascular: positive Regular rate & rhythm and Systolic murmur Abdomen: positive Non-tender, No organomegaly and Nml bowel sounds Skin: positive Warm and Dry Extremities: positive Full ROM and No pedal edema; negative Nml appearance (distinct clubbing with very pale nail beds) Neurologic/Psychiatric: positive Oriented x3, CN's nml (2-12) and Motor nml LABS 08/09/24 05:14 08/09/24 05:14 SEPSIS Current Stage of Sepsis: Ruled out Sepsis Criteria: Suspected or Documented, Recorded Heart Rate greater than 90 bpm and WBC count greater than 12,000 or less than 4000 TIME SPENT Time Spent in Discharge (Minutes): 40 Discharge Plan Discharge Patient Disposition: 01 Home, Self Care Condition: Stable Medically Cleared Date:: 08/09/24 Prescriptions: New azithromycin 250 mg Tablet 250 mg PO DAILY Qty: 1 0RF amoxicillin-pot clavulanate 875-125 mg Tablet 1 tab PO BID Qty: 10 0RF fluticasone propion-salmeterol [Wixela Inhub] 500-50 mcg/dose blister with device 1 inh inhalation BID Qty: 1 2RF Continued albuterol sulfate [Ventolin HFA] 200 PUFFS/18 GM HFA aerosol inhaler 1 - 2 puff inhalation Q4HR PRN (Reason: Shortness Of Air/Wheezing) Qty: 1 0RF calcium carbonate [Oyster Shell Calcium] 500 mg calcium (1,250 mg) tablet 1,000 mg PO BID magnesium oxide [MagOx] 400 mg (241.3 mg magnesium) tablet 400 mg PO DAILY cholecalciferol (vitamin D3) 50 mcg (2,000 unit) capsule 2,000 unit PO DAILY multivitamin Tablet 1 tab PO DAILY [id number] 700-320 mg capsule,delayed release(DR/EC) 2 cap PO DAILY Diet: Regular Health Concerns: You are an independent female who lives on [address] [place], takes care of the property, takes care of the house, and volunteers in your community. You state that you have allergies as a child but they have gone away. You are an ex tobacco user that stopped in September 2023 after 15 years. However, you have had asthma as part of your past medical history with your allergies. Those seem to be getting worse. 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 However, on physical examination, you have the very quiet lungs of the patient who has chronic obstructive lung disease. Your fingers have also changed to what we call "clubbed nails". That does not take days or weeks to change. It takes years. You may have had untreated emphysema without realizing it. Shortness of breath became worse and got to the point where you felt like you are suffocating and came to the emergency room. Chest x-ray showed you to have a right lower lung bronchial tube that was full of phlegm, but not quite pneumonia yet. The bronchial tube is distorted and its anatomy, and dilated much like a piece of a balloon. This is a very difficult problem to treat because bringing phlegm up from that area is difficult. Treatment in the hospital consisted of intravenous antibiotics, nebulizers, and steroids by mouth. We did find you to have an elevated white cell count to 37,000. Normal white blood count is below 10,000. Sometimes, infection will cause a white cell count to elevate. Leukemia can sometimes cause a white cell count to elevate. And inflammation and stress can also cause elevation of the white cell count.At discharge, your white cell count is still elevated at 33.9. Care Plan Goals: To resolve this current acute episode of chronic lung disease Assessment: Patient is fatigued, dyspneic with moderate exertion. Plan of Treatment: 1. Please see your primary care provider in follow-up for the diagnosis of -Chronic obstructive pulmonary disease with emphysema -Bronchiectasis -Elevated white cell count 2. Your primary care provider will need to reexamine your lungs on the new medicine I have given you. He or she will also need to refer you to pulmonology for -pulmonary function studies, -treatment of the new disease of bronchiectasis, -and refer you to cardiopulmonary rehab to get stronger. -she will also redraw the cell count to see if your white cell count has gone down. 3. I have started you on Advair which is a combined steroid and a long-acting bronchodilator. You are currently taking a short acting bronchodilator in the name of Ventolin. You will continue that. -I also want you to complete antibiotics with Augmentin 875/50 mg. 1 tablet twice a day for 10 more doses. -Also need to take azithromycin 250 mg for 1 more dose on August 10. Print Language: Azerbaijani Patient Instructions: COPD Dx, Chronic Lung Disease Irritants, Chronic Lung Disease Be Active, Chron Lung Disease Exercise Safely, Chronic Lung Disease Dyspnea Scale, Bronchiectasis About, Bronchiectasis Tx Stand Alone Forms: PCP List Follow-up Care: Kimberly Beck MD [Primary Care Provider] -
== END 2024-08-09 14:35 | disposition home or self-care (01) ==
LOC: MS2 11:11 → ED 11:11 → MS2 14:28
PROVIDERS: ADMIT Internal Medicine; ATTEND Internal Medicine
DX: J18.9 Pneumonia, unspecified organism; D72.829 Elevated white blood cell count, unspecified; J96.01 Acute respiratory failure with hypoxia; Z87.891 Personal history of nicotine dependence; Z57.5 Occupational exposure to toxic agents in other industries